=== PATIENT | male | born 1980 | race African-American/Black ===

== ENCOUNTER 2024-03-11 14:15 | Outpatient (CLI) | payer OTHER ==
[2024-03-11 14:53] LABS: #Basophils 0.05 10x3/uL (0.0-0.2); %Basophils 0.9 % (0.0-1.0); %Eosinophils 5.4 % (0.0-10.0); %Lymphocytes 33.9 % (21.0-51.0); %Monocytes 13.7 % (0.0-10.0); %Neutrophils 45.7 % (42.0-75.0); Hematocrit 49.5 % (42.0-52.0); Hemoglobin 15.8 g/dL (14.0-18.0); Mean Corpuscular HGB CONC 31.9 g/dL (32.0-36.0); Mean Corpuscular Hemoglobin 27.5 pg (27.0-31.0); Mean Corpuscular Volume 86.1 fL (78.0-98.0); Mean Platelet Volume 9.7 fL (7.4-10.4); Platelet Count 327 10x3/uL (130-400); RBC Distribution Width 15.2 % (11.5-14.5); Red Blood Cell (RBC) Count 5.75 mill/uL (4.70-6.10)
== END 2024-03-11 14:16 | disposition home or self-care (01) ==
LOC: LABBT 14:15
PROVIDERS: ATTEND Orthopaedic Surgery Hand Surgery
DX: Z01.812 Encounter for preprocedural laboratory examination (principal); S62.635A Displaced fracture of distal phalanx of left ring finger, initial encounter for closed fracture
CPT/HCPCS: 85025